=== PATIENT | male | born 1965 | race Caucasian/White ===

== ENCOUNTER 2017-07-08 11:22 | Outpatient (CLI) | payer BC ==
--- NOTE | 2017-07-08 11:59 | RAD ---
LEFT FOOT THREE VIEWS: History: 51-year-old male with history of bilateral heel pain, worse on the left side. FINDINGS: There are degenerative changes including very marked enthesophytic changes of the Achilles calcaneus insertion as well as calcaneal plantar enthesophyte. No acute fracture or dislocation. IMPRESSION: Very extensive Achilles calcaneal enthesophytic changes with additional plantar enthesophyte. No acut e fracture or dislocation. POS: C
--- NOTE | 2017-07-08 12:00 | RAD ---
RIGHT FOOT RADIOGRAPHS THREE VIEWS: Date: 07-08-17 Provided Clinical History: Heel pain. FINDINGS: There is no evidence for fracture or other acute osseous abnormality. Alignment appears anatomic. Alexandra nt spaces appear preserved. Conspicuous plantar and posterior calcaneal enthesophyte formation. IMPRESSION: Calcaneal enthesophyte formation which can be associated with planar fascitis. POS: [facility]
== END 2017-07-08 11:23 | disposition home or self-care (01) ==
LOC: SCSRAD 11:22
PROVIDERS: ATTEND Chiropractor
DX: M79.671 Pain in right foot (principal); M77.31 Calcaneal spur, right foot

== ENCOUNTER 2020-07-10 15:50 | Inpatient (IN) | payer BC ==
[~2020-07-10 15:50] MED LIST: Iopamidol-370 76% 500 ML 1 ML ONE
[2020-07-10] MEDS ORDERED: Morphine 4 MG/ML VIAL ONE (16:17)
[2020-07-10] MEDS ORDERED: Ondansetron PF 4 MG/2 ML Vial ONE (16:17)
[2020-07-10 16:31] LABS: #Lymphocytes 0.8 thou/uL (1.20-3.40); #Monocytes 0.8 thou/uL (0.11-0.59); #Neutrophils 14.6 thou/uL (1.40-6.50); %Basophils 0.2 % (0.0-1.0); %Eosinophils 0.1 % (0.0-10.0); %Lymphocytes 5.1 % (21.0-51.0); %Neutrophils 89.7 % (42.0-75.0); Hemoglobin 15.2 g/dL (14.0-18.0); Mean Corpuscular HGB CONC 34.8 g/dL (32.0-36.0); Mean Corpuscular Hemoglobin 31.9 pg (27.0-31.0); Mean Corpuscular Volume 91.5 fL (78.0-98.0); Platelet Count 276 thou/uL (130-400); RBC Distribution Width 11.9 % (11.5-14.5); Red Blood Cell (RBC) Count 4.77 mill/uL (4.70-6.10); White Blood Cell (WBC) Count 16.3 thou/uL (4.8-10.8)
[2020-07-10 16:53] LABS: ALT (SGPT) 26 U/L (8-55); AST (SGOT) 17 U/L (5-34); Albumin 4.3 g/dL (3.5-5.0); Alkaline Phosphatase 76 U/L (40-110); Anion Gap 15 mmol/L (10-20); BUN (Urea Nitrogen) 9 mg/dL (8.4-25.7); Bilirubin, Total 0.6 mg/dL (0.2-1.2); Calc. Creatinine Clearance 0 mL/min (70-130); Calcium 9.1 mg/dL (7.8-10.44); Carbon Dioxide 23 mmol/L (22-29); Chloride 100 mmol/L (98-107); Globulin 3.2 g/dL (2.4-3.5); Glucose 119 mg/dL (70-105); Lipase 11 U/L (8-78); Potassium 3.9 mmol/L (3.5-5.1); Protein, Total 7.5 g/dL (6.0-8.3); Sodium 134 mmol/L (136-145)
[2020-07-10] MEDS ORDERED: Piperacillin/Tazobactam 4.5 GM VIAL ONE (17:40)
[2020-07-10] MEDS ORDERED: diphenhydrAMINE 50 MG/ML VIAL ONE (17:59)
[2020-07-10] MEDS ORDERED: Clindamycin/D5W 600 mg/50 ml Premix Bag ONE (18:36)
[2020-07-10] MEDS ORDERED: Morphine 2 MG/ML VIAL SLOW IVP PRN (18:46)
[2020-07-10] MEDS ORDERED: Ondansetron PF 4 MG/2 ML Vial IVP PRN (18:47)
[2020-07-10] MEDS ORDERED: diphenhydrAMINE 50 MG/ML VIAL IVP PRN (18:54)
[2020-07-10 19:49] LABS: Lactic Acid 3.7 mmol/L (0.5-2.2)
[2020-07-10 19:55] VITALS: BMI 34.7
[2020-07-10] MEDS: Clindamycin/D5W 600 MG in Premix Bag 1 BAG IVPB SCH (23:48)
[2020-07-11 02:43] LABS: SARS-CoV-2 NAA Rapid Test Not Detected (NotDetected)
[2020-07-11] MEDS: Sodium Chloride 0.9% 1,000 ML IV SCH ×3 (02:48→23:47)
[2020-07-11] MEDS: Clindamycin/D5W 600 MG in Premix Bag 1 BAG IVPB SCH ×4 (05:39→23:38)
[2020-07-11 06:05] LABS: #Lymphocytes 1.4 thou/uL (1.20-3.40); #Monocytes 0.8 thou/uL (0.11-0.59); #Neutrophils 10.6 thou/uL (1.40-6.50); %Basophils 0.1 % (0.0-1.0); %Eosinophils 0.2 % (0.0-10.0); %Lymphocytes 10.7 % (21.0-51.0); %Monocytes 6.3 % (0.0-10.0); %Neutrophils 82.7 % (42.0-75.0); Hemoglobin 13.4 g/dL (14.0-18.0); Mean Corpuscular HGB CONC 33.3 g/dL (32.0-36.0); Mean Corpuscular Hemoglobin 30.6 pg (27.0-31.0); Mean Corpuscular Volume 91.9 fL (78.0-98.0); Mean Platelet Volume 6.8 fL (7.4-10.4); Platelet Count 239 thou/uL (130-400); Red Blood Cell (RBC) Count 4.38 mill/uL (4.70-6.10); White Blood Cell (WBC) Count 12.8 thou/uL (4.8-10.8)
[2020-07-11 06:23] LABS: Anion Gap 11 mmol/L (10-20); BUN (Urea Nitrogen) 9 mg/dL (8.4-25.7); Calc. Creatinine Clearance 174 mL/min (70-130); Calcium 7.9 mg/dL (7.8-10.44); Carbon Dioxide 25 mmol/L (22-29); Chloride 104 mmol/L (98-107); Glucose 115 mg/dL (70-105); Potassium 3.6 mmol/L (3.5-5.1); Sodium 136 mmol/L (136-145)
[2020-07-11] MEDS ORDERED: WATER IVPB SCH ×2 (16:00→17:00)
[2020-07-11] MEDS ORDERED: DEXTROSE 5% IVPB SCH ×2 (16:00→17:00)
[2020-07-11] MEDS ORDERED: SULFAMETHOXAZOLE IVPB SCH ×2 (16:00→17:00)
[2020-07-11] MEDS ORDERED: TRIMETHOPRIM IVPB SCH ×2 (16:00→17:00)
[2020-07-11] MEDS: DEXTROSE 5% IVPB SCH (17:20)
[2020-07-11] MEDS: TRIMETHOPRIM IVPB SCH (17:20)
[2020-07-11] MEDS: WATER IVPB SCH (17:20)
[2020-07-11] MEDS: SULFAMETHOXAZOLE IVPB SCH (17:20)
[2020-07-12] MEDS: SULFAMETHOXAZOLE IVPB SCH ×2 (05:02→17:59)
[2020-07-12] MEDS: TRIMETHOPRIM IVPB SCH ×2 (05:02→17:59)
[2020-07-12] MEDS: Clindamycin/D5W 600 MG in Premix Bag 1 BAG IVPB SCH ×4 (05:02→23:39)
[2020-07-12] MEDS: WATER IVPB SCH ×2 (05:02→17:59)
[2020-07-12] MEDS: DEXTROSE 5% IVPB SCH ×2 (05:02→17:59)
[2020-07-12] MEDS: Sodium Chloride 0.9% 1,000 ML IV SCH (05:06)
[2020-07-12 06:17] LABS: #Eosinphils 0.1 thou/uL (0.0-0.7); #Lymphocytes 1.4 thou/uL (1.20-3.40); #Monocytes 0.8 thou/uL (0.11-0.59); #Neutrophils 10.3 thou/uL (1.40-6.50); %Basophils 0.4 % (0.0-1.0); %Eosinophils 0.4 % (0.0-10.0); %Lymphocytes 11.1 % (21.0-51.0); %Monocytes 6.2 % (0.0-10.0); %Neutrophils 81.9 % (42.0-75.0); Hemoglobin 13.4 g/dL (14.0-18.0); Mean Corpuscular HGB CONC 32.8 g/dL (32.0-36.0); Mean Corpuscular Hemoglobin 30.7 pg (27.0-31.0); Mean Corpuscular Volume 93.4 fL (78.0-98.0); Mean Platelet Volume 7.1 fL (7.4-10.4); Platelet Count 226 thou/uL (130-400); RBC Distribution Width 11.8 % (11.5-14.5); Red Blood Cell (RBC) Count 4.37 mill/uL (4.70-6.10); White Blood Cell (WBC) Count 12.5 thou/uL (4.8-10.8)
[2020-07-12 06:39] LABS: Anion Gap 10 mmol/L (10-20); BUN (Urea Nitrogen) 6 mg/dL (8.4-25.7); Calc. Creatinine Clearance 181 mL/min (70-130); Calcium 8.4 mg/dL (7.8-10.44); Carbon Dioxide 24 mmol/L (22-29); Chloride 103 mmol/L (98-107); Glucose 120 mg/dL (70-105); Potassium 3.4 mmol/L (3.5-5.1); Sodium 134 mmol/L (136-145)
[2020-07-12] MEDS ORDERED: traMADol HCl 50 MG TAB PO PRN (08:33)
[2020-07-12] MEDS ORDERED: Acetaminophen 500 MG TAB PO PRN (08:33)
[2020-07-12] MEDS: Polyethylene Glycol 3350 17 GM Packet PO SCH (09:39)
[2020-07-12] MEDS ORDERED: NS 0.9% w/ 20 MEQ KCL 1,000 ML/1,000 ML BAG IV SCH (15:30)
[2020-07-13] MEDS: TRIMETHOPRIM IVPB SCH (04:54)
[2020-07-13] MEDS: SULFAMETHOXAZOLE IVPB SCH (04:54)
[2020-07-13] MEDS: DEXTROSE 5% IVPB SCH (04:54)
[2020-07-13] MEDS: WATER IVPB SCH (04:54)
[2020-07-13] MEDS: Clindamycin/D5W 600 MG in Premix Bag 1 BAG IVPB SCH (05:15)
[2020-07-13 06:38] LABS: #Eosinphils 0.1 thou/uL (0.0-0.7); #Lymphocytes 1.4 thou/uL (1.20-3.40); #Monocytes 0.7 thou/uL (0.11-0.59); #Neutrophils 7.5 thou/uL (1.40-6.50); %Basophils 0.1 % (0.0-1.0); %Eosinophils 1.2 % (0.0-10.0); %Lymphocytes 14.3 % (21.0-51.0); %Monocytes 7.4 % (0.0-10.0); Hemoglobin 13.3 g/dL (14.0-18.0); Mean Corpuscular HGB CONC 32.7 g/dL (32.0-36.0); Mean Corpuscular Hemoglobin 29.9 pg (27.0-31.0); Mean Corpuscular Volume 91.3 fL (78.0-98.0); Mean Platelet Volume 6.8 fL (7.4-10.4); Platelet Count 258 thou/uL (130-400); RBC Distribution Width 11.7 % (11.5-14.5); Red Blood Cell (RBC) Count 4.44 mill/uL (4.70-6.10); White Blood Cell (WBC) Count 9.7 thou/uL (4.8-10.8)
[2020-07-13 06:59] LABS: Anion Gap 12 mmol/L (10-20); BUN (Urea Nitrogen) 8 mg/dL (8.4-25.7); Calc. Creatinine Clearance 166 mL/min (70-130); Calcium 8.5 mg/dL (7.8-10.44); Carbon Dioxide 22 mmol/L (22-29); Chloride 104 mmol/L (98-107); Glucose 116 mg/dL (70-105); Potassium 3.6 mmol/L (3.5-5.1); Sodium 134 mmol/L (136-145)
[2020-07-13 08:12] VITALS: BP 126/65; TEMP 98.1
[2020-07-13] MEDS: Polyethylene Glycol 3350 17 GM Packet PO SCH (08:15)
== END 2020-07-13 10:22 | disposition home or self-care (01) | DRG 392 ==
LOC: ERS 15:50 → T4-A 17:52
PROVIDERS: ADMIT Internal Medicine; ATTEND Family Medicine
DX: K57.32 Diverticulitis of large intestine without perforation or abscess without bleeding (principal); E87.1 Hypo-osmolality and hyponatremia; E66.9 Obesity, unspecified; E87.6 Hypokalemia; K42.9 Umbilical hernia without obstruction or gangrene; T36.0X5A Adverse effect of penicillins, initial encounter; Z20.822 Contact with and (suspected) exposure to COVID-19; Z88.0 Allergy status to penicillin; Z88.1 Allergy status to other antibiotic agents; Z68.34 Body mass index [BMI] 34.0-34.9, adult
CPT/HCPCS: 36415; 74177; 80048; 80053; 83605; 83690; 85025; 87040; 96365; 96375; J1200; J2270; J2405; J2543; J3480; J3490; J7070; Q9967; U0002; U0003; U0005

== ENCOUNTER 2021-03-12 15:18 | Outpatient (CLI) | payer BC ==
[2021-03-12 17:43] LABS: #Basophils 0.1 10x3/uL (0.0-0.2); #Eosinphils 0.2 10x3/uL (0.0-0.5); #Monocytes 0.5 10x3/uL (0.0-1.1); #Neutrophils 3.9 10x3/uL (1.5-8.4); %Basophils 0.8 % (0.0-2.0); %Eosinophils 2.3 % (0.0-6.0); %Lymphocytes 30.3 % (18.0-47.0); %Monocytes 7.9 % (0.0-10.0); %Neutrophils 58.2 % (40.0-75.0); Hemoglobin 14.8 g/dL (13.5-17.5); Mean Corpuscular HGB CONC 33.6 g/dL (32.0-36.0); Mean Corpuscular Hemoglobin 29.8 pg (27.0-33.0); Mean Corpuscular Volume 88.7 fl (81.2-95.1); Mean Platelet Volume 9.3 fl (7.4-10.4); Platelet Count 312 10x3/uL (150-450); RBC Distribution Width 12.6 % (11.5-14.5); Red Blood Cell (RBC) Count 4.96 10x6/uL (4.32-5.72); White Blood Cell (WBC) Count 6.6 10x3/uL (3.5-10.5)
[2021-03-12 17:57] LABS: Anion Gap 13 mmol/L (10-20); BUN (Urea Nitrogen) 11 mg/dL (8.4-25.7); Calc. Creatinine Clearance 0 mL/min (70-130); Calcium 8.7 mg/dL (7.8-10.44); Carbon Dioxide 25 mmol/L (22-29); Chloride 104 mmol/L (98-107); Glucose 79 mg/dL (70-105); Potassium 4.1 mmol/L (3.5-5.1); Sodium 138 mmol/L (136-145)
[2021-03-13 09:13] LABS: SARS-CoV-2 PCR by NAA Not Detected (NotDetected)
== END 2021-03-12 15:19 | disposition home or self-care (01) ==
LOC: LABBT 15:18
PROVIDERS: ATTEND Surgery
DX: Z01.818 Encounter for other preprocedural examination (principal); K43.9 Ventral hernia without obstruction or gangrene; Z20.822 Contact with and (suspected) exposure to COVID-19
CPT/HCPCS: 80048; 85025; 93005; 93010; U0003; U0005

== ENCOUNTER 2021-03-17 05:33 | Day surgery (SDC) | payer BC ==
[2021-03-11 10:25] VITALS: BMI 33.7
[2021-03-17] MEDS ORDERED: Vancomycin 1 GM/200 ML BAG ONE (06:10)
[2021-03-17] MEDS ORDERED: Bupivacaine 0.25% HCL 30 ML VIAL ONE (06:55)
[2021-03-17] MEDS ORDERED: Xylocaine 1% w/ Epi 1:100K 10 ML VIAL ONE (06:55)
[2021-03-17] MEDS ORDERED: Fentanyl 100 MCG/2 ML VIAL ONE ×2 (07:18→09:18)
[2021-03-17] MEDS ORDERED: SUGAMMADEX SODIUM 200 MG/2 ML VIAL ONE (07:18)
[2021-03-17] MEDS ORDERED: Ketorolac Tromethamine 30 MG/ML VIAL ONE (07:49)
[2021-03-17] MEDS ORDERED: Glycopyrrolate 0.2 MG/ML 5 ML SYRINGE ONE (07:49)
[2021-03-17] MEDS ORDERED: Dexamethasone 20 MG/5 ML VIAL ONE (07:49)
[2021-03-17] MEDS ORDERED: PROPOFOL 200 MG/20 ML VIAL ONE (07:49)
[2021-03-17] MEDS ORDERED: Rocuronium Bromide 10 MG/ML (10ML VIAL) ONE (07:49)
[2021-03-17] MEDS ORDERED: ePHEDrine 50 MG/ML VIAL ONE (07:49)
[2021-03-17] MEDS ORDERED: Lidocaine 1% PF 5 ML VIAL ONE (07:49)
[2021-03-17] MEDS ORDERED: Ondansetron PF 4 MG/2 ML Vial ONE (07:49)
[2021-03-17] MEDS ORDERED: HYDROcodone/Acetaminophen 5/325 mg Tablet ONE (10:45)
== END 2021-03-17 11:20 | disposition home or self-care (01) ==
LOC: SDC 05:33
PROVIDERS: ATTEND Surgery
PROC: 0WUF4JZ Supplement Abdominal Wall with Synthetic Substitute, Percutaneous Endoscopic Approach (ICD-10-PCS; principal; 2021-03-17)
DX: K43.9 Ventral hernia without obstruction or gangrene (principal); Z88.0 Allergy status to penicillin; Z88.1 Allergy status to other antibiotic agents; Z91.09 Other allergy status, other than to drugs and biological substances
CPT/HCPCS: C1781; J1100; J1885; J2405; J2704; J3010; J3370; J3490; S0020